=== PATIENT | male | born 1990 | race Caucasian/White ===

== ENCOUNTER → 2024-11-06 | Outpatient (CLI) | payer MEDICARE ==
--- NOTE | 2024-11-06 16:39 | XR ---
EXAMINATION TYPE: XR thoracic spine complete, XR lumbar spine 2 or 3V DATE OF EXAM: 11/06/2024 4:35 PM INDICATION: Patient age:Male; 34 years old; Reason for study: M54.50; H. pain COMPARISON: None TECHNIQUE: Frontal, lateral, swimmer's projections of the thoracic spine. Frontal, lateral, and coned -down L5-S1 projections of the lumbar spine were obtained. FINDINGS: There are 5 lumbar type vertebral bodies identified. No evidence of any acute osseous patho logy. No evidence of loss of vertebral body height is seen. Minimal anterior osteophytosis of the th oracolumbar junction. There is normal alignment of the lumbar vertebral bodies. IMPRESSION: No acute process. [facility], , 11/06/2024 4:37 PM
== END | disposition home or self-care (01) ==
LOC: RADXRMAIN 15:32
PROVIDERS: ATTEND Registered Nurse
DX: M54.50 Low back pain, unspecified (principal); M54.6 Pain in thoracic spine
CPT/HCPCS: 72072; 72100